=== PATIENT | female | born 1985 | race Caucasian/White ===

== ENCOUNTER 2017-06-29 15:58 | Outpatient (CLI) | END 2017-06-29 15:59 | disposition home or self-care (01) | LOC: LAB 15:58 | PROVIDERS: ATTEND Nurse Practitioner Family | DX: R50.9 Fever, unspecified (principal); J02.9 Acute pharyngitis, unspecified; R11.2 Nausea with vomiting, unspecified; M25.50 Pain in unspecified joint | CPT/HCPCS: 36415; 80053; 82150; 83690; 84439; 84443; 85025; 85651; 86038; 86430; 87502; 87651 ==

== ENCOUNTER 2017-08-07 17:00 | Outpatient (POV) | END 2017-08-07 18:00 | LOC: OUTPT 17:00 | PROVIDERS: ATTEND Otolaryngology | DX: H91.90 Unspecified hearing loss, unspecified ear (principal) ==

== ENCOUNTER 2017-08-14 16:23 | Outpatient (CLI) | END 2017-08-14 16:24 | disposition home or self-care (01) | LOC: FCC-LAB 16:23 | PROVIDERS: ATTEND Nurse Practitioner Family | DX: M25.50 Pain in unspecified joint (principal); F32.9 Major depressive disorder, single episode, unspecified; R68.82 Decreased libido | CPT/HCPCS: 36415; 80053; 85025; 85651; 86140; 86664 ==